=== PATIENT | male | born 1945 | race Caucasian/White ===

== ENCOUNTER 2016-10-24 22:31 | Emergency (ER) | payer SELFPAY ==
[~2016-10-24] VITALS: Ht 172.7 cm; Wt 56.0 kg
[2016-10-24 22:37] VITALS: Ht 172.7 cm; Wt 56.0 kg
[2016-10-25] MEDS ORDERED: BACI28.34 TOP (00:35)
[2016-10-25 00:36] VITALS: BP 135/78; PULSE 79; RESP 20; TEMP 98.3
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
[2016-10-25] MEDS ORDERED: SILVER SULFADIAZINE 1% 25 GM CR TOP ONE (01:00)
== END 2016-10-25 01:08 | disposition home or self-care (01) ==
LOC: E/R 22:31
DX: L55.9 Sunburn, unspecified (principal); S41.102A Unspecified open wound of left upper arm, initial encounter; L30.9 Dermatitis, unspecified; F17.210 Nicotine dependence, cigarettes, uncomplicated; X32.XXXA Exposure to sunlight, initial encounter; Y92.9 Unspecified place or not applicable
CPT/HCPCS: 99283

== ENCOUNTER 2016-10-29 20:29 | Emergency (ER) | payer OTHER ==
[~2016-10-29] VITALS: Ht 177.8 cm; Wt 59.1 kg
[~2016-10-29 20:29] MED LIST: BACI28.34 TOP
[2016-10-29 20:35] VITALS: Ht 177.8 cm; Wt 59.1 kg
[2016-10-29] MEDS ORDERED: DIPHTH/TET/ACEL PERTUSS (ADULT) 0.5 ML VIAL IM* ONE (21:00)
[2016-10-29] MEDS ORDERED: SILVER SULFADIAZINE 1% 400 GM CR TOP ONE (21:00)
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
[2016-10-29] MEDS ORDERED: HYDROCODONE/APAP (5/325) TAB PO ONE (22:00)
== END 2016-10-29 23:50 | disposition home or self-care (01) ==
LOC: E/R 20:29
DX: T22.29 Burn of second degree of multiple sites of shoulder and upper limb, except wrist and hand (principal); T22.291D Burn of second degree of multiple sites of right shoulder and upper limb, except wrist and hand, subsequent encounter; X19.XXXD Contact with other heat and hot substances, subsequent encounter; Z23 Encounter for immunization
CPT/HCPCS: 90471; 90715

== ENCOUNTER 2016-10-30 05:34 | Emergency (ER) | payer OTHER ==
[~2016-10-30] VITALS: Ht 177.8 cm; Wt 59.1 kg
[2016-10-30 05:52] VITALS: Ht 177.8 cm; Wt 59.1 kg
[2016-10-30] MEDS ORDERED: SOD CHLORIDE 0.9% 500 ML IV STA (06:53)
[2016-10-30] MEDS ORDERED: SILVER SULFADIAZINE 1% 25 GM CR TOP ONE (07:00)
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
[2016-10-30] MEDS ORDERED: SILVER SULFADIAZINE 1% 400 GM CR TOP SCH (07:30)
[2016-10-30 07:39] LABS: ABNORMAL IP MESSAGE 1; BASOPHILS % 0.3 % (0.0-2.0); EOSINOPHILS % 0.3 % (0.0-7.0); HEMOGLOBIN 12.2 g/dl (14.0-18.0); LYMPHOCYTES # 1.4 10^3/ul (0.8-2.9); LYMPHOCYTES % 14.8 % (15.0-51.0); MEAN CORPUSCULAR HEMOGLOBIN 34.6 pg (29.0-33.0); MEAN CORPUSCULAR HGB CONC 35.9 g/dl (32.0-37.0); MEAN CORPUSCULAR VOLUME 96.3 fl (82.0-101.0); MEAN PLATELET VOLUME 9.1 fl (7.4-10.4); MONOCYTE # 1.6 10^3/ul (0.3-0.9); MONOCYTES % 16.7 % (0.0-11.0); NEUTROPHIL # 6.3 10^3/ul (1.6-7.5); NEUTROPHILS % 67.4 % (39.0-77.0); PLATELET COUNT 250 10^3/UL (140-415); POSITIVE DIFF @See below; RED BLOOD COUNT 3.53 10^6/ul (4.70-6.10); RED CELL DISTRIBUTION WIDTH 12.6 % (11.5-14.5); WHITE BLOOD COUNT 9.4 10^3/ul (4.8-10.8)
--- NOTE | 2016-10-30 07:48 | RADRPT ---
PROCEDURE: CT Brain without contrast. CLINICAL INDICATION: Altered Mental Status TECHNIQUE: A CT of the brain was performed on a [id number] 64-slice CT scanner utilizing axial imaging from the skull base through the vertex without IV contrast. Multiplanar reformatted images were made. Images were reviewed on a PACS workstation. The CTDIvol is 41.28 mGy and the DLP is 900 .28 mGycm. COMPARISON: None FINDINGS: There is no evidence of acute intracranial hemorrhage. There is no midline shift or mass effect. N o abnormal extra-axial fluid collection is seen. There is no CT evidence of acute cortical infarct. There is proportional diffuse prominence of the cerebral sulci and ventricles, consistent with moder ate diffuse cerebral volume loss, likely age-related. Scattered periventricular and deep cerebral white matter low attenuation is nonspecific, but likely represent sequelae of chronic microvascular cerebral white matter disease. Diffuse mild to moderate cerebellar volume loss is also noted. Partially imaged is periapical lucency of the right posterior maxillary teeth, suggesting advanced a pical periodontitis. The apical lucency extends superiorly towards the floor of the right maxillary sinus where there is bony thinning, but no evidence of bony dehiscence. There is associated right m axillary sinus mucosal disease and more high attenuation material along the floor of the right maxil michelle sinus, possibly representing inspissated secretions. There is mild polypoid mucosal disease in the left maxillary sinus. The orbits are unremarkable. The mastoid air cells are clear. No acute fracture is identified. 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 There are degenerative changes of the visualized upper cerv ical spine. IMPRESSION: 1. No evidence of acute intracranial pathology. 2. Partially imaged is periapical lucency of the right posterior maxillary teeth, suggesting advanc ed apical periodontitis. The apical lucency extends superiorly towards the floor of the right maxill domenico sinus where there is bony thinning, but no evidence of bony dehiscence. There is associated rig ht maxillary sinus mucosal disease and more high attenuation material along the floor of the right m axillary sinus, possibly representing inspissated secretions. The findings are consistent with advan tyrone apical periodontitis of the right posterior maxillary teeth associated right maxillary odontogen ic sinusitis. 3. Moderate diffuse cerebral volume loss, likely age-related. 4. Probable moderate chronic microvascular ischemic cerebral white matter disease. RPTAT: PP Uriel Casarez, Physician Date Time Electronically viewed and signed by Uriel Casarez, Physician on 10/30/2016 07:47 /
[2016-10-30 08:00] LABS: INR 1.17; PT RATIO 1.2
[2016-10-30 08:01] LABS: PARTIAL THROMBOPLASTIN TIME 31.8 Sec (25.0-35.0)
[2016-10-30 08:02] LABS: ALANINE AMINOTRANSFERASE 33 IU/L (13-69); ALBUMIN 3.9 g/dl (3.3-4.9); ALBUMIN/GLOBULIN RATIO 0.97; ALKALINE PHOSPHATASE 90 IU/L (42-121); ANION GAP 22 (8-16); ASPARTATE AMINO TRANSFERASE 47 IU/L (15-46); BILIRUBIN,INDIRECT 0.4 mg/dl (0-1.1); BILIRUBIN,TOTAL 0.4 mg/dl (0.2-1.3); BLOOD UREA NITROGEN 6 mg/dl (7-20); CALCIUM 9.2 mg/dl (8.4-10.2); CARBON DIOXIDE 27 mmol/L (21-31); CHLORIDE 98 mmol/L (97-110); CREATININE 0.49 mg/dl (0.61-1.24); GLUCOSE 107 mg/dl (70-220); POTASSIUM 3.7 mmol/L (3.5-5.1); SODIUM 143 mmol/L (135-144); TOTAL PROTEIN 7.9 g/dl (6.1-8.1)
[2016-10-30 08:04] LABS: ETHANOL < 10.0 mg/dl
[2016-10-30 10:43] VITALS: BP 122/70; PULSE 84; RESP 15
== END 2016-10-30 11:36 | disposition short-term general hospital (02) ==
LOC: E/R 05:34
DX: T22.29 Burn of second degree of multiple sites of shoulder and upper limb, except wrist and hand (principal); T22.291D Burn of second degree of multiple sites of right shoulder and upper limb, except wrist and hand, subsequent encounter; R41.82 Altered mental status, unspecified; F17.210 Nicotine dependence, cigarettes, uncomplicated; M79.601 Pain in right arm; X19.XXXD Contact with other heat and hot substances, subsequent encounter
CPT/HCPCS: 16020; 70450; 80053; 80306; 82962; 85025; 85610; 85730; 86703; J7040

== ENCOUNTER 2016-11-08 18:45 | Emergency (ER) | payer SELFPAY ==
[~2016-11-08] VITALS: Ht 170.2 cm; Wt 75.0 kg
[2016-11-08 18:48] VITALS: Ht 170.2 cm; Wt 75.0 kg
[2016-11-08 19:32] VITALS: BP 128/84; PULSE 69; RESP 17
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
== END 2016-11-08 19:37 | disposition home or self-care (01) ==
LOC: E/R 18:45
DX: T22.031D Burn of unspecified degree of right upper arm, subsequent encounter (principal); T22.032D Burn of unspecified degree of left upper arm, subsequent encounter; X19.XXXD Contact with other heat and hot substances, subsequent encounter; Z87.891 Personal history of nicotine dependence
CPT/HCPCS: 99281

== ENCOUNTER 2016-11-10 12:07 | Emergency (ER) | payer SELFPAY ==
[~2016-11-10] VITALS: Ht 157.5 cm; Wt 78.0 kg
[2016-11-10] MEDS ORDERED: ACETAMINOPHEN 500 MG TAB PO STA (12:12)
[2016-11-10 12:16] VITALS: Ht 157.5 cm; Wt 78.0 kg
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
== END 2016-11-10 13:46 | disposition home or self-care (01) ==
LOC: EDUNIT# 12:07 → E/R 12:07
DX: M79.641 Pain in right hand (principal); R40.2252 Coma scale, best verbal response, oriented, at arrival to emergency department; G89.29 Other chronic pain; M79.642 Pain in left hand; R40.2142 Coma scale, eyes open, spontaneous, at arrival to emergency department; R40.2362 Coma scale, best motor response, obeys commands, at arrival to emergency department
CPT/HCPCS: 99282